=== PATIENT | female | born 1985 | race Caucasian/White ===

== ENCOUNTER 2021-07-16 21:44 | Emergency (ER) | payer MEDICAID, OTHER ==
[~2021-07-16] VITALS: Ht 165.1 cm; Wt 68.0 kg
[2021-07-16 21:47] VITALS: BP_SYST 140
== END 2021-07-16 23:15 | disposition left against medical advice (07) ==
LOC: SED 21:44
DX: R10.9 Unspecified abdominal pain (principal); Z53.21 Procedure and treatment not carried out due to patient leaving prior to being seen by health care provider
CPT/HCPCS: 81002; 81025